=== PATIENT | female | born 1975 | race African-American/Black ===

== ENCOUNTER 2018-02-08 11:04 | Outpatient (CLI) | payer MEDICAID | END 2018-02-08 11:05 | disposition home or self-care (01) | LOC: BICMAMMO 11:04 | PROVIDERS: ATTEND Nurse Practitioner Women's Health | DX: Z12.31 Encounter for screening mammogram for malignant neoplasm of breast (principal); R92.1 Mammographic calcification found on diagnostic imaging of breast; Z80.3 Family history of malignant neoplasm of breast | CPT/HCPCS: 77067 ==

== ENCOUNTER 2020-03-10 16:09 | Outpatient (CLI) | payer MEDICAID ==
--- NOTE | 2020-03-10 16:46 | MMO ---
Bilateral MAMMO Bilat Screen DDI. CLINICAL HISTORY: Patient is 44 years old and is seen for screening. The patient has the following family history of breast cancer: sister, at age 36, (). The patient has no personal history of cancer. VIEWS: The views performed were: bilateral craniocaudal and bilateral mediolateral oblique. FILMS COMPARED: The present examination has been compared to a prior imaging study performed at [facility] on 03/26/2016. This study has been interpreted with the assistance of computer-aided detection. MAMMOGRAM FINDINGS: There are scattered fibroglandular densities. There are no suspicious masses, suspicious calcifications, or new areas of architectural distortion. IMPRESSION: THERE IS NO MAMMOGRAPHIC EVIDENCE OF MALIGNANCY. A ROUTINE FOLLOW-UP MAMMOGRAM IN 1 YEAR IS RECOMMENDED. ACR BI-RADS Category 1 - Negative MAMMOGRAPHY NOTE: 1. A negative mammogram report should not delay a biopsy if a dominant of clinically suspicious mass is present. 2. Approximately 10% to 15% of breast cancers are not detected by mammography. 3. Adenosis and dense breasts may obscure an underlying neoplasm. Reported by: CHRISTEN LUNA MD Electonically Signed: [id number]
== END 2020-03-10 16:10 | disposition home or self-care (01) ==
LOC: BICMAMMO 16:09
PROVIDERS: ATTEND Family Medicine
DX: Z12.31 Encounter for screening mammogram for malignant neoplasm of breast (principal); Z80.3 Family history of malignant neoplasm of breast
CPT/HCPCS: 77067

== ENCOUNTER 2020-07-30 10:12 | Outpatient (CLI) | payer MEDICAID, SELFPAY | END 2020-07-30 10:13 | disposition home or self-care (01) | LOC: BICRAD 10:12 | PROVIDERS: ATTEND Family Medicine | DX: M25.562 Pain in left knee (principal) ==

== ENCOUNTER 2020-09-14 13:38 | Inpatient (IN) | payer BC, SELFPAY ==
[~2020-09-14 13:38] MED LIST: Iopamidol-370 76% 500 ML 1 ML ONE
[2020-09-14] MEDS ORDERED: Acetaminophen 500 MG TAB ONE (13:42)
[2020-09-14] MEDS ORDERED: Azithromycin 500 MG VIAL ONE (13:55)
[2020-09-14] MEDS ORDERED: cefTRIAXone\\ROCEPHIN 2 GM VIAL ONE (13:55)
[2020-09-14 14:19] LABS: Mean Corpuscular HGB CONC 32.7 g/dL (32.0-36.0); Mean Corpuscular Hemoglobin 23.4 pg (27.0-31.0); Mean Corpuscular Volume 71.7 fL (78.0-98.0); RBC Distribution Width 13.3 % (11.5-14.5); Red Blood Cell (RBC) Count 5.98 mill/uL (4.20-5.40); White Blood Cell (WBC) Count 3.5 thou/uL (4.8-10.8)
[2020-09-14 14:41] LABS: Band 20 % (5-11); Lymphocytes 8 % (21-51); MDiff Complete? YES; Mean Platelet Volume 10.2 fL (7.4-10.4); Microcytosis SLIGHT = 6-15 cells (100X) (0-5/hpf); Monocytes 1 % (0-10); Neutrophil 45 % (42-75); Platelet Clumps SLIGHT; Platelet Morphology Comment PLT clumps seen-ADEQ; Polychromasia SLIGHT = 2-3 cells (100X) (0-2/hpf); Reactive Lymphocytes 26 % (0-10); Target Cells SLIGHT = 2-5 cells (100X) (0-1/hpf)
[2020-09-14 14:42] LABS: ALT (SGPT) 37 U/L (8-55); AST (SGOT) 63 U/L (5-34); Albumin 3.7 g/dL (3.5-5.0); Alkaline Phosphatase 51 U/L (40-110); Anion Gap 16 mmol/L (10-20); BUN (Urea Nitrogen) 6 mg/dL (7.0-18.7); Bilirubin, Total 0.4 mg/dL (0.2-1.2); Calc. Creatinine Clearance 0 mL/min (70-130); Calcium 8.2 mg/dL (7.8-10.44); Carbon Dioxide 22 mmol/L (22-29); Chloride 105 mmol/L (98-107); Globulin 3.3 g/dL (2.4-3.5); Glucose 96 mg/dL (70-105); Potassium 3.6 mmol/L (3.5-5.1); Sodium 139 mmol/L (136-145)
[2020-09-14 15:29] LABS: Bacteria/HPF None Seen HPF (None Seen); RBC/HPF 0-3 HPF (0-3); Squamous Epithelial 0-3 HPF (0-3); WBC/HPF 0-3 HPF (0-3)
[2020-09-14 15:31] LABS: Bilirubin Small (Negative); Blood, Urine Negative (Negative); Clarity Clear (Clear); Glucose, Urine (Dipstick) Negative (Negative); Ketone, Urine Negative (Negative); Leukocyte Negative (Negative); Nitrite Negative (Negative); Protein, Urine (Dipstick) 100 mg/dL (Neg-Trace); Specific Gravity, Urine 1.025 (1.005-1.030)
[2020-09-14 15:58] LABS: SARS-CoV-2 NAA Rapid Test DETECTED (NotDetected)
[2020-09-14] MEDS ORDERED: Ondansetron PF 4 MG/2 ML Vial IVP PRN ×2 (17:30→18:17)
[2020-09-14] MEDS ORDERED: Acetaminophen 325 MG TAB PO PRN (17:30)
[2020-09-14] MEDS ORDERED: Ondansetron ODT 4 MG TAB SL PRN (17:30)
[2020-09-14] MEDS ORDERED: Loperamide HCl 2 MG CAP PO PRN ×2 (18:17)
[2020-09-14] MEDS ORDERED: Guaifenesin DM 100-10/5 ML UDCUP PO PRN (18:17)
[2020-09-14] MEDS ORDERED: Ondansetron ODT 4 MG TAB PO PRN (18:17)
[2020-09-14] MEDS ORDERED: Acetaminophen 500 MG TAB PO PRN (18:17)
[2020-09-14] MEDS ORDERED: hydrALAZINE 20 MG/ML VIAL SLOW IVP PRN (18:17)
[2020-09-14] MEDS ORDERED: Ibuprofen 200 MG TAB PO PRN (18:17)
[2020-09-14] MEDS ORDERED: Albuterol Sulfate 2.5 mg/3 ml Neb NEB SCH (18:30)
[2020-09-14] MEDS ORDERED: Ketorolac Tromethamine 30 MG/ML VIAL IVP PRN (18:31)
[2020-09-14] MEDS ORDERED: Albuterol 200 PUFF (6.7GM INHALER) INH SCH (18:45)
[2020-09-14] MEDS ORDERED: Dexamethasone 4 mg/ml Vial SLOW IVP SCH (19:00)
[2020-09-14] MEDS: Sodium Chloride 0.9% 1,000 ML IV SCH (19:47)
[2020-09-14] MEDS: Famotidine 20 MG TAB PO SCH (19:49)
[2020-09-14] MEDS: Ascorbic Acid 500 mg Chewable Tablet PO SCH (19:50)
[2020-09-14 20:13] VITALS: BMI 34.8
[2020-09-14] MEDS ORDERED: Cholecalciferol 1,000 UNITS (25 MCG) TAB PO SCH (21:00)
[2020-09-15] MEDS: Sodium Chloride 0.9% 1,000 ML IV SCH (05:07)
[2020-09-15] MEDS: Benzonatate 100 MG CAP PO PRN ×2 (05:07→14:53)
[2020-09-15 06:32] LABS: Hemoglobin 12.5 g/dL (12.0-16.0); Mean Corpuscular HGB CONC 32.7 g/dL (32.0-36.0); Mean Corpuscular Hemoglobin 23.3 pg (27.0-31.0); Mean Corpuscular Volume 71.3 fL (78.0-98.0); Platelet Count 276 thou/uL (130-400); RBC Distribution Width 13.2 % (11.5-14.5); Red Blood Cell (RBC) Count 5.36 mill/uL (4.20-5.40); White Blood Cell (WBC) Count 1.7 thou/uL (4.8-10.8)
[2020-09-15 06:40] LABS: ALT (SGPT) 37 U/L (8-55); AST (SGOT) 43 U/L (5-34); Albumin 3.2 g/dL (3.5-5.0); Alkaline Phosphatase 43 U/L (40-110); Anion Gap 11 mmol/L (10-20); BUN (Urea Nitrogen) 6 mg/dL (7.0-18.7); Bilirubin, Total 0.3 mg/dL (0.2-1.2); Calc. Creatinine Clearance 159 mL/min (70-130); Carbon Dioxide 24 mmol/L (22-29); Chloride 107 mmol/L (98-107); Globulin 2.8 g/dL (2.4-3.5); Glucose 144 mg/dL (70-105); Potassium 3.4 mmol/L (3.5-5.1); Sodium 139 mmol/L (136-145)
[2020-09-15 08:05] LABS: #Lymphocytes 0.5 thou/uL (1.20-3.40); #Monocytes 0.1 thou/uL (0.11-0.59); #Neutrophils 1.1 thou/uL (1.40-6.50); %Basophils 0.5 % (0.0-1.0); %Eosinophils 0.2 % (0.0-10.0); %Monocytes 4.6 % (0.0-10.0); %Neutrophils 65.7 % (42.0-75.0); Hypochromia SLIGHT = 6-15 cells (100X) (0-5/hpf); MDiff Complete? YES; Microcytosis MODERATE=15-30 cells (100X) (0-5/hpf); Ovalocytes SLIGHT = 2-5 cells (100X) (0-1/hpf); Platelet Morphology Comment Appears Adequate; Polychromasia SLIGHT = 2-3 cells (100X) (0-2/hpf)
[2020-09-15] MEDS: Famotidine 20 MG TAB PO SCH (08:54)
[2020-09-15] MEDS: Ascorbic Acid 500 mg Chewable Tablet PO SCH (08:55)
[2020-09-15] MEDS ORDERED: Thiamine 100 MG TAB PO SCH (09:00)
[2020-09-15] MEDS ORDERED: Enoxaparin Sodium 40 MG/0.4 ML SYRINGE SC SCH (09:00)
[2020-09-15] MEDS ORDERED: Dexamethasone 4 mg/ml Vial SLOW IVP SCH (09:00)
[2020-09-15] MEDS ORDERED: Potassium Chloride 20 MEQ TAB PO SCH (12:15)
[2020-09-15] MEDS ORDERED: cefTRIAXone\\ROCEPHIN 2 GM in Sodium Chloride 0.9% 100 ML IVPB SCH (14:00)
[2020-09-15] MEDS ORDERED: Azithromycin 500 MG in Sodium Chloride 0.9% 250 ML 250 ML IVPB SCH (15:00)
[2020-09-15 16:36] VITALS: BP 140/84; TEMP 97.6
== END 2020-09-15 17:23 | disposition home or self-care (01) | DRG 871 ==
LOC: ERS 13:38 → T4-B 16:09
PROVIDERS: ADMIT Family Medicine; ATTEND Internal Medicine
PROC: 8E0ZXY6 Isolation (ICD-10-PCS; principal; 2020-09-14)
DX: A41.89 Other specified sepsis (principal); U07.1 COVID-19; J12.82 Pneumonia due to coronavirus disease 2019; I10 Essential (primary) hypertension; Z85.41 Personal history of malignant neoplasm of cervix uteri; Z98.890 Other specified postprocedural states; Z79.899 Other long term (current) drug therapy; Z82.49 Family history of ischemic heart disease and other diseases of the circulatory system
CPT/HCPCS: 0240U; 36415; 71045; 71275; 80053; 81003; 81015; 82728; 83605; 84484; 85025; 85379; 86140; 87040; 87086; 93005; 96365; 96367; J0456; J0696; J1100; J1650; J1885; J3490; J7050; Q9967

== ENCOUNTER 2020-09-19 23:42 | Inpatient (IN) | payer BC ==
[2020-09-19] MEDS ORDERED: Ondansetron PF 4 MG/2 ML Vial ONE (23:56)
[2020-09-19] MEDS ORDERED: Morphine 4 MG/ML VIAL ONE (23:56)
[2020-09-20 00:32] LABS: Hemoglobin 13.6 g/dL (12.0-16.0); Mean Corpuscular HGB CONC 32.8 g/dL (32.0-36.0); Mean Corpuscular Hemoglobin 23.1 pg (27.0-31.0); Mean Corpuscular Volume 70.6 fL (78.0-98.0); Mean Platelet Volume 9.2 fL (7.4-10.4); Platelet Count 350 thou/uL (130-400); RBC Distribution Width 13.1 % (11.5-14.5); Red Blood Cell (RBC) Count 5.89 mill/uL (4.20-5.40); White Blood Cell (WBC) Count 14.4 thou/uL (4.8-10.8)
[2020-09-20 00:47] LABS: Band 3 % (5-11); Lymphocytes 9 % (21-51); MDiff Complete? YES; Microcytosis SLIGHT = 6-15 cells (100X) (0-5/hpf); Monocytes 5 % (0-10); Neutrophil 82 % (42-75); Platelet Morphology Comment Appears Adequate; Reactive Lymphocytes 1 % (0-10)
[2020-09-20 00:57] LABS: ALT (SGPT) 38 U/L (8-55); AST (SGOT) 31 U/L (5-34); Albumin 3.5 g/dL (3.5-5.0); Alkaline Phosphatase 49 U/L (40-110); Anion Gap 17 mmol/L (10-20); BUN (Urea Nitrogen) 5 mg/dL (7.0-18.7); Bilirubin, Total 0.8 mg/dL (0.2-1.2); Calc. Creatinine Clearance 0 mL/min (70-130); Calcium 8.2 mg/dL (7.8-10.44); Carbon Dioxide 19 mmol/L (22-29); Chloride 106 mmol/L (98-107); Globulin 3.2 g/dL (2.4-3.5); Glucose 116 mg/dL (70-105); Potassium 3.4 mmol/L (3.5-5.1); Protein, Total 6.7 g/dL (6.0-8.3); Sodium 139 mmol/L (136-145)
[2020-09-20] MEDS ORDERED: Enoxaparin Sodium 100 MG/ML SYRINGE ONE (02:37)
[2020-09-20] MEDS ORDERED: Enoxaparin Sodium 30 MG/0.3 ML SYRINGE ONE (02:37)
[2020-09-20] MEDS ORDERED: Acetaminophen 500 MG TAB ONE (03:21)
[2020-09-20] MEDS ORDERED: Guaifenesin DM 100-10/5 ML UDCUP PO PRN (04:32)
[2020-09-20] MEDS ORDERED: Acetaminophen 325 MG TAB PO PRN (04:32)
[2020-09-20] MEDS ORDERED: Ondansetron ODT 4 MG TAB PO PRN (04:32)
[2020-09-20] MEDS ORDERED: Ondansetron PF 4 MG/2 ML Vial IVP PRN (04:32)
[2020-09-20] MEDS ORDERED: Potassium Chloride 20 MEQ TAB PO SCH (04:45)
[2020-09-20 05:56] VITALS: BMI 34.6
[2020-09-20] MEDS ORDERED: Dexamethasone Sod Phosphate 6 MG in Sodium Chloride 0.9% 50 ML IVPB SCH (09:00)
[2020-09-20] MEDS: Cholecalciferol (Vitamin D3) 400 UNITS TAB PO SCH (09:38)
[2020-09-20] MEDS: Ascorbic Acid 500 mg Chewable Tablet PO SCH (09:38)
[2020-09-20] MEDS: Zinc Sulfate 220 MG CAP PO SCH (09:38)
[2020-09-20] MEDS: HYDROcodone/Acetaminophen 5/325 mg Tablet PO PRN ×2 (09:51→19:55)
[2020-09-20] MEDS: Enoxaparin Sodium 120 MG/0.8 ML SYRINGE SC SCH (14:39)
[2020-09-21] MEDS: Enoxaparin Sodium 120 MG/0.8 ML SYRINGE SC SCH ×2 (01:29→14:30)
[2020-09-21 04:55] LABS: Hemoglobin 11.9 g/dL (12.0-16.0); Mean Corpuscular HGB CONC 31.5 g/dL (32.0-36.0); Mean Corpuscular Hemoglobin 22.3 pg (27.0-31.0); Mean Corpuscular Volume 70.9 fL (78.0-98.0); Mean Platelet Volume 9.3 fL (7.4-10.4); Platelet Count 347 thou/uL (130-400); Red Blood Cell (RBC) Count 5.35 mill/uL (4.20-5.40)
[2020-09-21 05:10] LABS: Anion Gap 17 mmol/L (10-20); BUN (Urea Nitrogen) 7 mg/dL (7.0-18.7); Calc. Creatinine Clearance 180 mL/min (70-130); Calcium 8.8 mg/dL (7.8-10.44); Carbon Dioxide 19 mmol/L (22-29); Chloride 106 mmol/L (98-107); Glucose 109 mg/dL (70-105); Potassium 3.8 mmol/L (3.5-5.1); Sodium 138 mmol/L (136-145)
[2020-09-21 05:15] LABS: Band 9 % (5-11); Lymphocytes 7 % (21-51); MDiff Complete? YES; Monocytes 9 % (0-10); Neutrophil 75 % (42-75); Platelet Morphology Comment Appears Adequate
[2020-09-21] MEDS: Cholecalciferol (Vitamin D3) 400 UNITS TAB PO SCH (08:13)
[2020-09-21] MEDS: Ascorbic Acid 500 mg Chewable Tablet PO SCH (08:13)
[2020-09-21] MEDS: Dexamethasone 4 mg/ml Vial SLOW IVP SCH (08:14)
[2020-09-21] MEDS: HYDROcodone/Acetaminophen 5/325 mg Tablet PO PRN ×2 (08:14→23:03)
[2020-09-21] MEDS: Zinc Sulfate 220 MG CAP PO SCH (08:14)
[2020-09-21] MEDS ORDERED: Amlodipine 10 MG TAB PO SCH (17:30)
[2020-09-22] MEDS: Enoxaparin Sodium 120 MG/0.8 ML SYRINGE SC SCH ×2 (02:09→13:04)
[2020-09-22] MEDS: Dexamethasone 4 mg/ml Vial SLOW IVP SCH (07:37)
[2020-09-22] MEDS: Cholecalciferol (Vitamin D3) 400 UNITS TAB PO SCH (07:37)
[2020-09-22] MEDS: Ascorbic Acid 500 mg Chewable Tablet PO SCH (07:37)
[2020-09-22] MEDS: Zinc Sulfate 220 MG CAP PO SCH (07:37)
[2020-09-22] MEDS ORDERED: Amlodipine 10 MG TAB PO SCH (09:00)
[2020-09-22 11:58] VITALS: BP 132/88; TEMP 98.3
== END 2020-09-22 16:37 | disposition home or self-care (01) | DRG 871 ==
LOC: ERS 23:42 → 2SW 09-20 03:07
PROVIDERS: ADMIT Student in an Organized Health Care Education/Training Program; ATTEND Internal Medicine
DX: A41.89 Other specified sepsis (principal); U07.1 COVID-19; J12.82 Pneumonia due to coronavirus disease 2019; I26.99 Other pulmonary embolism without acute cor pulmonale; J96.01 Acute respiratory failure with hypoxia; I10 Essential (primary) hypertension; E87.6 Hypokalemia; Z85.41 Personal history of malignant neoplasm of cervix uteri; Z79.899 Other long term (current) drug therapy; R65.20 Severe sepsis without septic shock
CPT/HCPCS: 36415; 71045; 71275; 80048; 80053; 82728; 83605; 83735; 83880; 84484; 85025; 86140; 87040; 87149; 93005; 96372; 96374; 96375; J1100; J1650; J2270; J2405

== ENCOUNTER 2020-11-13 09:44 | Outpatient (CLI) | payer BC | END 2020-11-13 09:45 | disposition home or self-care (01) | LOC: BICRAD 09:44 | PROVIDERS: ATTEND Internal Medicine Critical Care Medicine | DX: R06.00 Dyspnea, unspecified (principal) | CPT/HCPCS: 71046 ==

== ENCOUNTER 2021-05-04 13:27 | Outpatient (CLI) | payer BC | END 2021-05-04 13:28 | disposition home or self-care (01) | LOC: BICMAMMO 13:27 | PROVIDERS: ATTEND Nurse Practitioner Women's Health | DX: Z12.31 Encounter for screening mammogram for malignant neoplasm of breast (principal); Z80.3 Family history of malignant neoplasm of breast | CPT/HCPCS: 77063; 77067 ==

== ENCOUNTER 2022-05-06 08:03 | Outpatient (CLI) | payer BC, MEDICAID | END 2022-05-06 08:04 | disposition home or self-care (01) | LOC: BICMAMMO 08:03 | PROVIDERS: ATTEND Family Medicine | DX: Z12.31 Encounter for screening mammogram for malignant neoplasm of breast (principal); Z80.3 Family history of malignant neoplasm of breast | CPT/HCPCS: 77063; 77067 ==